=== PATIENT | female | born 1960 | race Caucasian/White ===

== ENCOUNTER 2022-06-11 01:18 | Emergency (ER) | payer BC ==
[~2022-06-11] VITALS: Ht 162.6 cm; Wt 104.5 kg
--- NOTE | 2022-06-11 03:51 | NUR ---
PT INTUBATED IN THE FIELD BY EMS. PRESENTED TO ROOM MULTIPLE NURSING STAFF MEMBERS IN ROOM. EMS X3. ER DOC IN ROOM. RT X2. PERFORMED BMV WHILE AUTO COMPRESSIONS WERE PERFORMED. COMPRESSIONS TRADED OFF TO NURSING.
== END 2022-06-11 05:41 | disposition expired ==
LOC: COL.ER 01:18
DX: I46.9 Cardiac arrest, cause unspecified (principal)